=== PATIENT | female | born 1970 | race Caucasian/White ===

== ENCOUNTER 2019-09-25 14:33 | Emergency (ER) | payer OTHER ==
[~2019-09-25] VITALS: Ht 170.2 cm; Wt 95.3 kg
--- NOTE | 2019-09-25 14:45 | NUR ---
PT AMBULATED TO ER BED 04
[2019-09-25 14:52] VITALS: BP 157/68
--- NOTE | 2019-09-25 15:04 | NUR ---
49 Y/O FEMALE C/O RIGHT SIDED ABD PAIN X1.5 WEEKS. PT WAS DX WITH GALLSTONES 2 WEEKS AGO. PT WENT TO SEE HER PCP TODAY AND WAS TOLD TO COME TO ER D/T. PAIN STATES SHE HAS BOUTS OF N/V D/T ABD PAIN. PAIN IS 7/10 NOW BUT CAN GET UP TO A 10/10. PT STATES PAIN RADIATES DOWN TO RIGHT PELVIC REGION. ABD SOFT/ NON DISTENDED. VSS. AAOX4. DENIES COUGH/ SOB/ FEVER/ CHILLS PMT: HTN
[2019-09-25] MEDS: KETOROLAC 60 MG/2 ML VIAL IM ONE (15:19)
[2019-09-25 15:40] VITALS: BP 157/68
--- NOTE | 2019-09-25 15:40 | NUR ---
Patient discharged with v/s stable. Written and verbal after care instructions given and explained. Patient alert, oriented and verbalized understanding of instructions. Ambulatory with steady gait. All questions addressed prior to discharge. ID band removed. Patient advised to follow up with PMD. Rx of NORCO, MOTRIN given. Patient educated on indication of medication including possible reaction and side effects. Opportunity to ask questions provided and answered.
== END 2019-09-25 15:40 | disposition home or self-care (01) ==
LOC: MED 14:33
DX: R10.9 Unspecified abdominal pain (principal); I10 Essential (primary) hypertension; Z90.49 Acquired absence of other specified parts of digestive tract
CPT/HCPCS: 81002; 96372; 99283; J1885